=== PATIENT | male | born 1960 | race Caucasian/White ===

== ENCOUNTER 2017-02-27 09:45 | Observation (INO) | payer MEDICARE, OTHER, SELFPAY ==
[~2017-02-27] VITALS: Ht 188 cm; Wt 120.4 kg
[2017-02-27] MEDS ORDERED: SODIUM CHLORIDE FLUSH 10ML SYR IVF ONE (10:30)
[2017-02-27 10:48] LABS: HEMATOCRIT 49.6 % (39.2-51.8); HEMOGLOBIN 17.1 g/dL (13.7-18.0); WHITE BLOOD COUNT 6.4 x10^3/uL (3.4-10)
[2017-02-27] MEDS ORDERED: LABETALOL 5MG/ML, 20ML IVPush ONE (11:00)
[2017-02-27 11:01] LABS: BLOOD UREA NITROGEN 23 mg/dL (7-18)
[2017-02-27 11:05] LABS: IS PT STATUS REG ER OR PRE ER? YES
[2017-02-27] MEDS ORDERED: LABETALOL 5MG/ML, 20ML ONE (11:09)
[2017-02-27] MEDS ORDERED: SODIUM CHLORIDE 0.9% 1,000ML IVBOLUS ONE (11:30)
[2017-02-27] MEDS ORDERED: SODIUM CHLORIDE FLUSH 10ML SYR IVF PRN (13:00)
[2017-02-27] MEDS ORDERED: HYDROcodone/APAP 5/325 TABLET PO PRN (13:30)
[2017-02-27] MEDS ORDERED: LABETALOL 5MG/ML, 20ML IVPush PRN (13:30)
[2017-02-27] MEDS ORDERED: POLYETHYLENE GLYCOL 17 GM PACKET PO PRN (13:30)
[2017-02-27] MEDS ORDERED: ENALAPRILAT 1.25 MG/ML, 2ML IVPush PRN (13:30)
[2017-02-27] MEDS ORDERED: ONDANSETRON 2MG/ML, 2ML IVPush PRN (13:30)
[2017-02-27] MEDS ORDERED: ONDANSETRON ODT 4 MG PO PRN (13:30)
[2017-02-27] MEDS ORDERED: morphine SULFATE 10 MG/ML, 1ML IVPush PRN (13:30)
[2017-02-27] MEDS ORDERED: ENOXAPARIN 40 MG/0.4 ML SQ SCH (14:00)
[2017-02-27] MEDS ORDERED: ENALAPRILAT 1.25 MG/ML, 2ML ONE (14:32)
[2017-02-27 15:20] VITALS: BP 199/124
[2017-02-27] MEDS ORDERED: hydrALAzine 20 MG/ML, 1ML IV PRN (15:30)
[2017-02-27] MEDS ORDERED: hydrALAzine 20 MG/ML, 1ML ONE (15:33)
[2017-02-27] MEDS ORDERED: NICOTINE 14MG/24 HR PATCH.TD24 TD SCH (17:00)
[2017-02-27 17:15] VITALS: BP 175/102
[2017-02-27] MEDS: AMLODIPINE 5 MG TABLET PO SCH (18:07)
[2017-02-27 19:05] VITALS: BP 162/86
[2017-02-27 22:48] LABS: IS PT STATUS REG ER OR PRE ER? NO
[2017-02-28 03:30] VITALS: BP 143/82
[2017-02-28 06:00] LABS: HEMATOCRIT 46.4 % (39.2-51.8); HEMOGLOBIN 16.2 g/dL (13.7-18.0); WHITE BLOOD COUNT 6.1 x10^3/uL (3.4-10)
[2017-02-28 06:11] VITALS: BP 167/87
[2017-02-28 06:25] LABS: BLOOD UREA NITROGEN 19 mg/dL (7-18)
[2017-02-28 06:39] LABS: ASPARTATE AMINO TRANSFERASE 14 U/L (15-37)
[2017-02-28 06:41] LABS: IS PT STATUS REG ER OR PRE ER? NO
[2017-02-28 08:30] VITALS: BP 185/88
[2017-02-28] MEDS ORDERED: LOSARTAN 50MG TABLET PO SCH (09:00)
[2017-02-28] MEDS ORDERED: FOLIC ACID 1 MG TABLET PO SCH (09:00)
[2017-02-28] MEDS ORDERED: SENNA/DOCUSATE TABLET PO SCH (09:00)
[2017-02-28] MEDS: AMLODIPINE 5 MG TABLET PO SCH (09:00)
[2017-02-28] MEDS ORDERED: THIAMINE 100MG TABLET PO SCH (09:00)
[2017-02-28] MEDS ORDERED: HYDROCHLOROTHIAZIDE 25 MG TABLET PO SCH (09:00)
[2017-02-28] MEDS ORDERED: AMLO5TAB2 PO (10:32)
[2017-02-28] MEDS ORDERED: LOSA50TA2 PO (10:32)
[2017-02-28] MEDS ORDERED: HYDR25TA6 PO (10:32)
[2017-02-28] MEDS ORDERED: CLON0.2T10 PO (10:32)
[2017-02-28 11:00] VITALS: BP 150/86
== END 2017-02-28 12:20 | disposition home or self-care (01) ==
LOC: ED 10:42 → INTOOBSV 12:33 → EDIP 12:33 → 5SO 14:54 → DCLOUNGE 02-28 12:03
PROVIDERS: ADMIT Hospitalist; ATTEND Hospitalist
DX: I16.0 Hypertensive urgency (principal); R51 Headache; R00.2 Palpitations; I10 Essential (primary) hypertension; E66.01 Morbid (severe) obesity due to excess calories; E78.00 Pure hypercholesterolemia, unspecified
CPT/HCPCS: 36415; 70450; 71010; 80048; 80053; 81003; 82040; 82570; 83735; 84156; 84443; 84484; 85025; 85610; 85730; 93005; 93306; 96374; 96375; 99291; G0378; J0360